=== PATIENT | female | born 1980 | race African-American/Black ===

== ENCOUNTER 2017-08-27 09:32 | Emergency (ER) | payer BC ==
[2017-08-27] MEDS ORDERED: Bicillin CR 1.2 MILL UNITS/2 ML SYRINGE ONE (09:49)
== END 2017-08-27 10:16 | disposition home or self-care (01) ==
LOC: BURERS 09:32
DX: J02.9 Acute pharyngitis, unspecified (principal); D50.0 Iron deficiency anemia secondary to blood loss (chronic); E66.9 Obesity, unspecified; K21.9 Gastro-esophageal reflux disease without esophagitis; I10 Essential (primary) hypertension; F41.9 Anxiety disorder, unspecified; F32.9 Major depressive disorder, single episode, unspecified
CPT/HCPCS: 96372; J0558